=== PATIENT | male | born 1990 | race Caucasian/White ===

== ENCOUNTER 2022-07-10 05:43 | Emergency (ER) | payer OTHER, SELFPAY ==
[2022-07-10] VITALS (11 sets, daily range): BP systolic 111–128; BP diastolic 60–80; PULSE 61–84; RESP 16–18; TEMP 36.7; O2SAT 94–99; BMI 37.5
--- NOTE | 2022-07-10 06:01 | CRLHL7_ITS ---
For Patients: As a result of the Century Cures Act, medical imaging exams and procedure reports are released immediately into your electronic medical record. You may view this report before your referring provider. If you have questions, please contact your health care provider. CT HEAD DATE: 07/10/2022 CLINICAL HISTORY: Patient with fall. TECHNIQUE: Standard CT scanning of the head was performed. COMPARISON: None. FINDINGS: There is left frontal scalp swelling. There is no intracranial hemorrhage. The bundy matter-white matter differentiation is intact. The size of the ventricular system is normal for age. There is no mass effect or midline shift. The calvarium is unremarkable. The orbits are unremarkable. The paranasal sinuses are unremarkable. The mastoid air cells are unremarkable. IMPRESSION: Left frontal scalp swelling without associated skull fracture or intracranial hemorrhage. Please note that all CT scans at this facility use dose modulation, iterative reconstruction, and/or weight-based dosing when appropriate to reduce radiation dose to as low as reasonably achievable. Dictated by: Patricia Vallejo MD @ 07/10/2022 06:59:31 (Electronically Signed)
--- NOTE | 2022-07-10 06:01 | CRLHL7_ITS ---
For Patients: As a result of the Cures Act, medical imaging exams and procedure reports are released immediately into your electronic medical record. You may view this report before your referring provider. If you have questions, please contact your health care provider. CT CERVICAL SPINE DATE: 07/10/2022 HISTORY: Trauma. TECHNIQUE: Helical CT acquisition of the cervical spine was performed. Boyle and sagittal reformations were performed and interpreted. COMPARISON: None. FINDINGS: There is no evidence of acute displaced fracture or dislocation of the cervical spine. There is straightening of the normal cervical lordosis. The vertebral body height is maintained. There are scattered degenerative changes in the cervical spine. The visualized prevertebral soft tissues are unremarkable. The visualized lung apices are unremarkable. IMPRESSION: No acute displaced fracture or dislocation of the cervical spine. Please note that all CT scans at this facility use dose modulation, iterative reconstruction, and/or weight-based dosing when appropriate to reduce radiation dose to as low as reasonably achievable. Dictated by: Patricia Vallejo MD @ 07/10/2022 06:59:54 (Electronically Signed)
--- NOTE | 2022-07-10 06:30 | ED_ITS ---
HPI - General Adult General Date Seen: 07/10/22 Chief complaint: Head Injury/Pain Stated complaint: head lac Time Seen by Provider: 07/10/22 05:50 History of Present Illness HPI narrative: Patient is a Related Data Previous Rx's Medication Instructions Recorded cyclobenzaprine 10 mg tablet 10 mg PO TID PRN muscle spasm #20 07/10/22 tabs Allergies Allergy/AdvReac Type Severity Reaction Status Date / Time No Known Drug Allergies Allergy Unverified 07/10/22 05:50 Review of Systems Narrative: Review of systems is outlined above otherwise noted to be negative. [facility] Medical History (Updated 07/10/22 @ 11:48 by Makenzie Richardson) No significant past medical history Surgical History (Updated 07/10/22 @ 11:48 by Makenzie Richardson) No significant past surgical history Social History Smoking Status: Never smoker Do you use any of these nicotine containing products: None Second hand tobacco smoke exposure: No How often do you have a drink containing alcohol: never How often do you have six or more drinks on one occasion: Never AUDIT-C Alcohol total score: 0 Non-prescribed substance use: denies use Exam Narrative: Exam Narrative: Vitals noted. HEENT: He has a shallow laceration his occiput runs horizontally and is about 1/2 cm in length. This is not full skin thickness. Upper edges are well approximated. Bleeding has been controlled with direct pressure. Conjunctiva clear. Tympanic membranes are pearly white bilaterally. Posterior pharynx is clear without erythema or exudate. No postauricular ecchymosis or hemotympanum. Neck is supple without adenopathy, thyromegaly, carotid bruit. Full range of motion of the cervical spine. Lungs: Clear to auscultation in all mohan. No wheezes, rales, rhonchi. Heart: Regular rate and rhythm without murmur. Abdomen: Soft and nontender. No guarding, rigidity, rebound. Bowel sounds are normal. No palpable masses. Extremities: No cyanosis or edema. Good distal pulses. I did palpate some intermittent leg cramps in both eyes. No calf tenderness or swelling. Skin: No abnormalities noted of the exposed skin. Neurologic: Awake, alert, fully oriented. Neurologic exam is nonfocal. Const: Vital Signs, click to edit/add: Vital Signs - 24 hr 07/10/22 05:51 07/10/22 06:00 07/10/22 06:29 Temperature 98.1 F Pulse Rate 64 Pulse Rate [Right Pulse Oximeter] 65 Respiratory Rate 18 16 Blood Pressure 125/60 Blood Pressure [Le ft Upper Arm] 128/73 Pulse Oximetry 99 99 97 Oxygen Delivery Me thod Room Air 07/10/22 06:32 07/10/22 08:06 07/10/22 08:00 Temperature Pulse Rate 63 Pulse Rate [Right Pulse Oximeter] 61 Respiratory Rate 16 16 Blood Pressure 125/64 Blood Pressure [Le ft Upper Arm] 117/76 Pulse Oximetry 96 96 Oxygen Delivery Me thod 07/10/22 05:47 07/10/22 06:25 07/10/22 06:45 Temperature Pulse Rate Pulse Rate [Right Pulse Oximeter] 61 61 63 Respiratory Rate 16 16 16 Blood Pressure Blood Pressure [Le ft Upper Arm] 128/73 125/60 125/64 Pulse Oximetry 97 97 96 Oxygen Delivery Me thod Room Air Room Air Room Air 07/10/22 07:15 07/10/22 07:45 07/10/22 08:00 Temperature Pulse Rate Pulse Rate [Right Pulse Oximeter] 84 61 64 Respiratory Rate 16 16 16 Blood Pressure Blood Pressure [Le ft Upper Arm] 111/64 125/80 117/76 Pulse Oximetry 94 96 96 Oxygen Delivery Me thod Room Air Room Air Room Air Course Course Hospital Course: Patient was seen and examined. He has a shallow laceration on the occiput that is not currently bleeding. This is well approximated and I applied Dermabond with hemostasis. CT scan of his head and neck are ordered and returned with no abnormal findings. He initially declined need for medication but later began having some muscle cramps in his thighs and was treated with Flexeril 10 mg orally and ibuprofen 800 mg orally. He was able to ambulate out of the depar tment without any difficulty. Vital Signs Vital signs: Initial Vital Signs Pulse Rate 61 07/10/22 05:47 Pulse Rhythm 07/10/22 05:47 Respiratory Rate 16 07/10/22 05:47 Respiratory Effort 07/10/22 05:47 Respiratory Depth Normal 07/10/22 05:47 Respiratory Pattern 07/10/22 05:47 Blood Pressure 128/73 07/10/22 05:47 Blood Pressure Mean 91 07/10/22 05:47 Blood Pressure Position Sitting 07/10/22 05:47 Pulse Oximetry 97 07/10/22 05:47 Oxygen Delivery Method 07/10/22 05:47 Vital Signs Pulse Rate 61 07/10/22 05:47 Respiratory Rate 16 07/10/22 05:47 Blood Pressure 128/73 07/10/22 05:47 Pulse Oximetry 97 07/10/22 05:47 Oxygen Delivery Method 07/10/22 05:47 Temperature 98.1 F 07/10/22 05:51 Pulse Rate 61 07/10/22 08:06 Respiratory Rate 16 07/10/22 08:06 Blood Pressure 117/76 07/10/22 08:06 Pulse Oximetry 96 07/10/22 08:00 Oxygen Delivery Method 07/10/22 08:00 Medical Decision Making MDM Narrative Medical decision making narrative: We discussed that esophageal strictures are generally caused by untreated acid reflux. I have encouraged him to take omeprazole 20 mg every day for at least 6-8 weeks. If he has further stricture symptoms he needs an EGD. Ideally he should have one regardless. Discharge Plan Discharge Clinical Impression: Closed head injury Patient Disposition: Home, Self-Care Condition: Improved Instructions: Head Injury (ED), Skin Adhesive Care (ED) Additional Instructions: Rest, ice, ibuprofen 800 mg 3 times daily. Flexeril 10 mg 3 times daily as needed for muscle spasms. Stay hydrated, stretch. Follow-up in the clinic if symptoms are not improving over the next 2-3 days. Prescriptions: New cyclobenzaprine 10 mg tablet 10 mg PO TID PRN (Reason: muscle spasm) Qty: 20 0RF Follow Up/Referrals: Generic,Amb Provider [Primary Care Provider] - Stand Alone Forms: My[employer] Info Instructions
[2022-07-10] MEDS: CYCLOBENZAPRINE HCL 10 MG TABLET PO (07:23)
--- NOTE | 2022-07-24 21:38 | ED_ITS ---
HPI - General Adult General Chief complaint: Head Injury/Pain Stated complaint: head lac Time Seen by Provider: 07/10/22 05:50 History of Present Illness HPI narrative: Pt is a 32 yo male who comes in after falling on the ice this morning. He hit the back of his head on cement steps. No LOC. He suffered a laceration and has a headache. No neuro deficit. No visual changes. Related Data Previous Rx's Medication Instructions Recorded cyclobenzaprine 10 mg tablet 10 mg PO TID PRN muscle spasm #20 07/10/22 tabs Allergies Allergy/AdvReac Type Severity Reaction Status Date / Time No Known Drug Allergies Allergy Unverified 07/10/22 05:50 [facility] Medical History (Updated 07/10/22 @ 11:48 by Makenzie Richardson) No significant past medical history Surgical History (Updated 07/10/22 @ 11:48 by Makenzie Richardson) No significant past surgical history Social History Smoking Status: Never smoker Do you use any of these nicotine containing products: None Second hand tobacco smoke exposure: No How often do you have a drink containing alcohol: never How often do you have six or more drinks on one occasion: Never AUDIT-C Alcohol total score: 0 Non-prescribed substance use: denies use Course Course Hospital Course: Patient was seen and examined. He has a shallow laceration on the occiput that is not currently bleeding. This is well approximated and I applied Dermabond with hemostasis. CT scan of his head and neck are ordered and returned with no abnormal findings. He initially declined need for medication but later began having some muscle cramps in his thighs and was treated with Flexeril 10 mg orally and ibuprofen 800 mg orally. He was able to ambulate out of the department without any difficulty. Vital Signs Vital signs: Initial Vital Signs Pulse Rate 61 07/10/22 05:47 Pulse Rhythm 07/10/22 05:47 Respiratory Rate 16 07/10/22 05:47 Respiratory Effort 07/10/22 05:47 Respiratory Depth Normal 07/10/22 05:47 Respiratory Pattern 07/10/22 05:47 Blood Pressure 128/73 07/10/22 05:47 Blood Pressure Mean 91 07/10/22 05:47 Blood Pressure Position Sitting 07/10/22 05:47 Pulse Oximetry 97 07/10/22 05:47 Oxygen Delivery Method 07/10/22 05:47 Vital Signs Pulse Rate 61 07/10/22 05:47 Respiratory Rate 16 07/10/22 05:47 Blood Pressure 128/73 07/10/22 05:47 Pulse Oximetry 97 07/10/22 05:47 Oxygen Delivery Method 07/10/22 05:47 Temperature 98.1 F 07/10/22 05:51 Pulse Rate 61 07/10/22 08:06 Respiratory Rate 16 07/10/22 08:06 Blood Pressure 117/76 07/10/22 08:06 Pulse Oximetry 96 07/10/22 08:00 Oxygen Delivery Method 07/10/22 08:00 Discharge Plan Discharge Clinical Impression: Closed head injury Patient Disposition: Home, Self-Care Condition: Improved Instructions: Head Injury (ED), Skin Adhesive Care (ED) Additional Instructions: Rest, ice, ibuprofen 800 mg 3 times daily. Flexeril 10 mg 3 times daily as needed for muscle spasms. Stay hydrated, stretch. Follow-up in the clinic if symptoms are not improving over the next 2-3 days. Prescriptions: New cyclobenzaprine 10 mg tablet 10 mg PO TID PRN (Reason: muscle spasm) Qty: 20 0RF Follow Up/Referrals: Generic,Amb Provider [Primary Care Provider] - Stand Alone Forms: MyHealth Info Instructions
== END 2022-07-10 08:07 | disposition home or self-care (01) ==
PROVIDERS: Emergency Provider Family Medicine
DX: S01.01XA Laceration without foreign body of scalp, initial encounter (principal); W00.0XXA Fall on same level due to ice and snow, initial encounter; R51.9 Headache, unspecified
CPT/HCPCS: 12001; 70450; 72125; 94761; 99283; 99284; A9270

== ENCOUNTER 2023-01-02 08:23 | Outpatient (CLI) | payer OTHER, SELFPAY | END 2023-01-02 08:24 | disposition home or self-care (01) | PROVIDERS: PCP Family Medicine; Visit Provider Family Medicine | DX: Z00.00 Encounter for general adult medical examination without abnormal findings (principal); R53.83 Other fatigue; Z13.6 Encounter for screening for cardiovascular disorders | CPT/HCPCS: 80053; 80061; 84270; 84402; 84403; 84443 ==

== ENCOUNTER 2023-02-14 09:22 | Outpatient (CLI) | payer OTHER, SELFPAY | END 2023-02-14 09:23 | disposition home or self-care (01) | LOC: NFLDREF 02-19 10:58 | PROVIDERS: PCP Family Medicine; Referring Provider Family Medicine; Visit Provider Family Medicine | DX: R79.89 Other specified abnormal findings of blood chemistry (principal) | CPT/HCPCS: 83001; 83002; 84403 ==

== ENCOUNTER 2023-06-09 18:59 | Outpatient (CLI) | payer OTHER, SELFPAY | END 2023-06-09 19:00 | disposition home or self-care (01) | LOC: NFLDUCREF 19:00 | PROVIDERS: PCP Family Medicine; Visit Provider Physician Assistant | DX: R79.89 Other specified abnormal findings of blood chemistry (principal); E86.0 Dehydration; R19.7 Diarrhea, unspecified; R11.0 Nausea; R51.9 Headache, unspecified | CPT/HCPCS: 87045; 87046; 87427 ==

== ENCOUNTER 2023-12-20 23:32 | Emergency (ER) | payer OTHER, SELFPAY ==
[2023-12-20 23:35] VITALS: BP 117/56; PULSE 104; RESP 14; TEMP 38.7; O2SAT 92; BMI 39.2
[2023-12-20] MEDS: 0.9 % SODIUM CHLORIDE 1000 ml 1,000 ML IV (23:45)
--- NOTE | 2023-12-20 23:59 | ED.GENADULT ---
HPI - General Adult General Chief complaint: Headache/Migraine Stated complaint: migraine Time Seen by Provider: 12/20/23 23:59 History of Present Illness HPI narrative: Pt c/o fever, headache, nausea, chills, back pain, sore throat, and tingling in bilateral arms /fingers that started earlier today. Pt went home from work early d/t symptoms. Hx ocular migraines. Hx fall in August where pt fell down stairs onto back. Zofran 4 mg at 2100, Tylenol 1000 mg at 2100 33-year-old man presenting to the emergency department with complaint of severe headache as well as fever nausea. Seem to have started perhaps in the low back and escalated very quickly. Does have a history of migraines particularly ocular. Has had some sore throat. Also began to experience tingling in both arms and fingers. 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 No rashes noted. There was a fall a few months ago onto his back. Did try treating a couple of hours before arrival with acetaminophen and also Zofran. Was particularly alarming is the rapid escalation or development of this headache which is atypical. More brought in distribution as well. Accompanied by spouse. Related Data Home Medications ?Medication ?Instructions ?Recorded ?Confirmed cholecalciferol (vitamin D3) PO .QD 01/02/23 12/22/23 cetirizine .Route 12/20/23 12/22/23 multivitamin 1 tab PO QAM 12/22/23 12/22/23 omega 5-ryy-uum-fish oil 100 cap PO 12/22/23 12/22/23 mg-160 mg-1,000 mg capsule (Fish Oil) Previous Rx's ?Medication ?Instructions ?Recorded ondansetron 4 mg disintegrating 4 mg PO Q8H PRN nausea and 06/09/23 tablet vomiting #10 tabs azithromycin 500 mg tablet See Rx Instructions PO .COMPLEX #3 12/22/23 tabs Allergies Allergy/AdvReac Type Severity Reaction Status Date / Time No Known Drug Allergies Allergy Verified 12/22/23 09:59 Review of Systems Status of ROS: Reports: 6 or more systems reviewed and unremarkable except as noted in History and below [facility] Medical History Foot pain ?M79.673 - Pain in unspecified foot (ICD-10) No significant past medical history Surgical History No significant past surgical history Social History What is your current living situation?: I presently have a place to live Problems where you live: no known problems In the past 12 months, utilities in danger of being shut off: no In past 12 months, lack of transportation kept you from medical appts, meetings, work, or getting things needed for daily living: no In the past 12 mos, have been you worried that your food would run out before you had money to buy more?: never true In the past 12 mos, the food you bought just didn't last and you didn't have money to buy more?: never true Smoking Status: Never smoker Do you use any of these nicotine containing products: None Second hand tobacco smoke exposure: No How often do you have a drink containing alcohol: never How often do you have six or more drinks on one occasion: Never AUDIT-C Alcohol total score: 0 Non-prescribed substance use: denies use How often does anyone, including family, friends and others, physically hurt you: never How often does anyone, including family, friends and others, insult or talk down to you: rarely How often does anyone, including family, friends and others, threaten you with harm: never How often does anyone, including family, friends and others, scream or curse at you: rarely Little interest or pleasure in doing things: several days Feeling down, depressed, or hopeless: not at all Exam Narrative: Exam Narrative: Pleasant. Large stature. Clearly very uncomfortable. Shielding eyes from the light. Speaking fluidly. Cranial nerves 2-12 intact. Pupils are equal and brisk. Moving all extremities without difficulty with good strength. Skin is rather warm not inconsistent with measured fever on arrival but no rash on exposed areas noted. Extremities are without edema and well-perfused. Neck is supple. No swellings. Oropharynx maybe minimal erythema but not markedly so. Heart in elevated rate with regular rhythm. Lungs appear to be clear. Broadly a little sore in paracervical and paraspinal musculature Const: Vital Signs, click to edit/add: Vital Signs - 24 hr 12/20/23 23:35 Temperature 101.7 F H Pulse Rate [Pulse Oximeter] 104 H Respiratory Rate 14 Blood Pressure [Ri ght Upper Arm] 117/56 L Pulse Oximetry 92 Oxygen Delivery Me thod Room Air Documenting provider has reviewed patient's vital signs: yes Course Vital Signs Vital signs: Initial Vital Signs Temperature 101.7 F H 12/20/23 23:35 Temperature Source Temporal Artery Scan 12/20/23 23:35 Pulse Rate 104 H 12/20/23 23:35 Respiratory Rate 14 12/20/23 23:35 Blood Pressure 117/56 L 12/20/23 23:35 Blood Pressure Mean 76 12/20/23 23:35 Blood Pressure Position Supine 12/20/23 23:35 Pulse Oximetry 92 12/20/23 23:35 Oxygen Delivery Method Room Air 12/20/23 23:35 Vital Signs Temperature 101.7 F H 12/20/23 23:35 Pulse Rate 104 H 12/20/23 23:35 Respiratory Rate 14 12/20/23 23:35 Blood Pressure 117/56 L 12/20/23 23:35 Pulse Oximetry 92 12/20/23 23:35 Oxygen Delivery Method Room Air 12/20/23 23:35 Temperature 101.8 F H 12/21/23 02:48 Pulse Rate 91 12/21/23 04:05 Respiratory Rate 18 12/21/23 04:05 Blood Pressure 120/73 12/21/23 04:05 Pulse Oximetry 94 12/21/23 04:25 Oxygen Delivery Method Room Air 12/21/23 01:32 Medications Administered Medications: Discontinued Medications Generic Name Dose Route Start Last Admin Trade Name Freq PRN Reason Stop Dose Admin Acetaminophen 1,000 mg 12/21/23 03:05 12/21/23 03:15 Acetaminophen 500 Mg Tablet PO 12/21/23 03:06 1,000 mg ONCE ONE Administration Diphenhydramine HCl 25 mg 12/21/23 00:08 12/21/23 00:16 Diphenhydramine 50 Mg/Ml Inj IVP 12/21/23 00:09 25 mg ONCE ONE Administration Hydromorphone HCl 0.5 mg 12/21/23 02:38 12/21/23 03:02 Hydromorphone 0.5 Mg/0.5 Ml Inj IVP 12/21/23 02:39 0.5 mg ONCE ONE Administration Sodium Chloride 1,000 mls @ 1,000 mls/hr 12/21/23 00:08 12/21/23 00:52 0.9 % Sodium Chloride 1000 Ml IV 12/21/23 01:07 Infused .Q1H ONE Infusion Sodium Chloride 1,000 mls @ 1,000 mls/hr 12/21/23 00:51 12/21/23 02:00 0.9 % Sodium Chloride 1000 Ml IV 12/21/23 01:50 Infused .Q1H ONE Infusion Ketamine HCl 20 mg/ Sodium 100.2 mls @ 200.4 mls/hr 12/21/23 01:41 12/21/23 03:26 Chloride IVPB 12/21/23 01:42 Infused ONCE ONE Infusion Ketorolac Tromethamine 30 mg 12/21/23 00:08 12/21/23 00:15 Ketorolac 30 Mg/Ml Inj IVP 12/21/23 00:09 30 mg ONCE ONE Administration Lidocaine HCl 5 ml 12/21/23 02:53 12/21/23 03:25 Lidocaine Hcl 2 % Multidose 20 Ml Vial INJECTION 12/21/23 02:54 5 ml ONCE ONE Administration Ondansetron HCl 4 mg 12/21/23 00:08 12/21/23 00:15 Ondansetron 2 Mg/Ml Inj IVP 12/21/23 00:09 4 mg ONCE ONE Administration Medical Decision Making MDM Narrative Medical decision making narrative: Initially would presume activation of headache and myalgias with primary viral process. I would screen for typical viral etiologies. Meningitis certainly is in differential and would do lab work in that regard. Would like to offer relief of his headache though. Given intensity of symptoms along with this fever would collect blood cultures in the process. Did have sore throat perhaps a be reasonable to check for strep. With symmetry of symptoms in frankly presence of pain I think this is less likely to represent a thromboembolic stroke event. IV initiated. Received normal saline ultimately 2 L. Antiemetic, ketorolac. Labs are reassuring. I think fever is more customer retention representative of infectious etiology contributing to this headache possibly even a viral meningitis. I think head bleed is less likely but if we intend to do a spinal tap, screening head CT would be warranted as well. Also with concerns has expressed we did do a head CT which was reviewed by me to be unremarkable. Radiology concurs. Still though with good deal of discomfort. Second round with ketamine and finally then hydromorphone and then acetaminophen. Still uncomfortable but improved. Feels he can manage at home. Spinal tap is deferred pending improvement. Ambulatory from the ER. See patient discharge plan for further discussion Lab Data Lab results reviewed: Yes I reviewed the patient's lab results Labs: Lab Results 12/20/23 12/21/23 12/21/23 Range/Units 23:55 00:51 02:20 WBC 8.39 (4.50-11.00) K/uL RBC 4.58 (4.30-5.90) m/uL Hgb 14.2 (13.5-17.5) gm/dL Hct 40.3 (37.0-53.0) % MCV 88 (80-100) fL MCH 31 (26-34) pg MCHC 35 (32-36) gm/dL RDW Coeff of Tunde 12.1 (11.5-15.5) % Plt Count 149 (140-440) K/uL Neut % (Auto) 81.2 H (42.0-72.0) % Lymph % (Auto) 6.2 L (20-44) % Evans % (Auto) 11.0 (0.0-11.0) % Eos % (Auto) 0.1 (0.0-7.0) % Baso % (Auto) 0.1 (0.0-3.0) % Neut # (Auto) 6.80 (1.7-7.0) K/uL Lymph # (Auto) 0.50 L (0.90-2.90) K/uL Evans # (Auto) 0.90 (0.00-0.90) K/UL Eos # (Auto) 0.01 (0.00-0.50) K/uL Baso # (Auto) 0.01 (0.00-0.30) K/uL Abs Immat Gran (auto) 0.12 (0.00-0.30) K/uL Imm/Tot Granulo (auto) 1.4 % Sodium 137 (135-149) mmol/L Potassium 3.9 (3.6-5.1) mmol/L Chloride 105 (96-114) mmol/L Carbon Dioxide 25 (20-32) mmol/L Anion Gap 7 (7-15) mEq/L BUN 14 (5-24) mg/dL Creatinine 1.0 (0.5-1.5) mg/dL Estimated Creat Clear 123.30 Estimated GFR 103 ml/min Glucose 109 (60-115) mg/dL Lactate (0.5-1.9) mmol/L Calcium 8.5 (8.4-10.6) mg/dL Total Bilirubin 0.6 (0.1-1.5) mg/dL Direct Bilirubin 0.2 (0.0-0.5) mg/dL AST 27 (12-35) U/L ALT 28 (4-50) U/L Alkaline Phosphatase 57 (40-150) U/L C-Reactive Protein 1.8 H (0.5-1.0) mg/dL Total Protein 6.2 (6.0-8.3) g/dL Albumin 3.7 (3.3-5.0) g/dL SARS-CoV-2 (PCR) Negative SARS-CoV-2 (Negative) Influenza Type A (PCR) Negative PCR FLU A (Negative) Influenza Type B (PCR) Negative PCR FLU B (Negative) RSV (PCR) Negative PCR RSV (Negative) Group A Strep DNA NOT DETECTED (Not Detectd) 12/21/23 Range/Units 03:20 WBC (4.50-11.00) K/uL RBC (4.30-5.90) m/uL Hgb (13.5-17.5) gm/dL Hct (37.0-53.0) % MCV (80-100) fL MCH (26-34) pg MCHC (32-36) gm/dL RDW Coeff of Tunde (11.5-15.5) % Plt Count (140-440) K/uL Neut % (Auto) (42.0-72.0) % Lymph % (Auto) (20-44) % Evans % (Auto) (0.0-11.0) % Eos % (Auto) (0.0-7.0) % Baso % (Auto) (0.0-3.0) % Neut # (Auto) (1.7-7.0) K/uL Lymph # (Auto) (0.90-2.90) K/uL Evans # (Auto) (0.00-0.90) K/UL Eos # (Auto) (0.00-0.50) K/uL Baso # (Auto) (0.00-0.30) K/uL Abs Immat Gran (auto) (0.00-0.30) K/uL Imm/Tot Granulo (auto) % Sodium (135-149) mmol/L Potassium (3.6-5.1) mmol/L Chloride (96-114) mmol/L Carbon Dioxide (20-32) mmol/L Anion Gap (7-15) mEq/L BUN (5-24) mg/dL Creatinine (0.5-1.5) mg/dL Estimated Creat Clear Estimated GFR ml/min Glucose (60-115) mg/dL Lactate 1.1 (0.5-1.9) mmol/L Calcium (8.4-10.6) mg/dL Total Bilirubin (0.1-1.5) mg/dL Direct Bilirubin (0.0-0.5) mg/dL AST (12-35) U/L ALT (4-50) U/L Alkaline Phosphatase (40-150) U/L C-Reactive Protein (0.5-1.0) mg/dL Total Protein (6.0-8.3) g/dL Albumin (3.3-5.0) g/dL SARS-CoV-2 (PCR) (Negative) Influenza Type A (PCR) (Negative) Influenza Type B (PCR) (Negative) RSV (PCR) (Negative) Group A Strep DNA (Not Detectd) Discharge Plan Discharge Clinical Impression: Fever, Headache, Myalgia Patient Disposition: Home w/ Parent or Adult Condition: Improved Additional Instructions: Rest. Hydrate. Ice packs to your neck? Blood cultures are pending. Be seen for marked increase in headache particularly associated with escalating fever, repeated vomiting, discoordination. Prescriptions: No Action cholecalciferol (vitamin D3) PO .QD ondansetron 4 mg tablet,disintegrating 4 mg PO Q8H PRN (Reason: nausea and vomiting) Qty: 10 0RF Fish Oil 100-160-1,000 mg capsule PO multivitamin Tablet 1 tab PO QAM azithromycin 500 mg tablet See Rx Instructions PO .COMPLEX Qty: 3 0RF Rx Instructions: For 500 mg dose pack: take 500 mg once daily for 3 days PO cetirizine [Zyrtec] .Route Follow Up/Referrals: Eb Jose MD [Primary Care Provider] - Stand Alone Forms: [employer] Info Instructions
[2023-12-21] VITALS (21 sets, daily range): BP systolic 92–120; BP diastolic 35–73; PULSE 83–99; RESP 14–18; TEMP 38.5–38.8; O2SAT 91–97
[2023-12-21] MEDS: KETOROLAC 30 MG/ML inj IVP (00:15)
[2023-12-21] MEDS: ONDANSETRON 2 MG/ML inj 4 MG IVP (00:15)
[2023-12-21] MEDS: diphenhydrAMINE 50 MG/ML inj 25 MG IVP (00:16)
--- OUTSIDE RECORDS SUMMARY | 2023-12-21 00:17 | XMS_ITS | Clinical Summary ---
Author Organization [facility] Address [place], [place] [address] Care Team Providers Care Business Agent Name Role Phone Pcp, No Primary Care Provider Unavailabl e Allergies No known active allergies Medications Medication Sig Dispensed Refills Start Date End Date Status CLARITIN-D 12 HOUR 5 MG-120 MG TAB take 1 tablet by oral route every 12 hours 0 01/21/2007 Active MULTIVITAMIN TAB take 1 tablet by oral route once daily with food 0 03/24/2007 Active omega-3 fatty acids-vitamin E (FISH OIL) 1,000 mg cap Take by mouth once daily. 0 09/13/2013 Active Active Problems Problem Noted Date Diagnosed Date Tear of PCL (posterior cruciate ligament) of kne e 09/21/2013 Immunizations Name Administration Dates Next Due AMB Influenza, IIV3 (Age >=3 years)(Flu Clinic Only) 05/25/2010,06/03/2008 DTP 11/20/1992, 2,1991,07/15 DTaP 10/22/1996 HIB HbOC (HibTITER) 08/15/1992, 2,1991,07/15 Hepatitis B (Peds) 03/15/1999,10/13/1998, 999 Influenza, IIV3 (Age >=3 years) 03/14/2013 MMR 09/26/2003,08/15/1992 Meningococcal Vaccine (Menactra) 11/21/2009 Oral Polio Vaccine 10/22/1996, 3,1991,07/15 Td, Preservative Free (age >= 7 Years) 4 Varicella Vaccine 11/21/2009,10/22/1996 Family History Medical History Relation Name Comments Heart Disease Father exercise induc ed Vtach Psychiatric illness Mother mild dep ression Thyroid Disease Mother Good Health Sister Relation Name Status Comments Father Mother Sister Social History Tobacco Use Types Packs/Day Years Used Date Smoking Tobacco: Never Smokeless Tobacco: Never Tobacco Cessation:Counseling Given: Yes Alcohol Use Standard Drinks/Week Comments No 0 (1 standard drink = 0.6 oz pur e alcohol) Sex and Gender Information Value Date Recorded Sex Assigned at Not on file Gender Identity Not on file Sexual Orientation Not on file Obstetrics History Last Filed Vital Signs Vital Sign Reading Time Taken Comments Blood Pressure 126/70 06/20/2014 10:25 AM STATISTICS TEACHER Pulse 59 06/20/2014 10:25 AM STATISTICS TEACHER Temperature 36.9 ??C (98.4 ??F) 09/13/2013 9:55 AM CD T Respiratory Rate - - Oxygen Saturation 98% 09/13/2013 9:55 AM CDT Inhaled Oxygen Concentration - - Weight 122 kg (269 lb) 06/20/2014 10:25 AM STATISTICS TEACHER Height 193 cm (6' 3.98) 06/20/2014 10:25 AM STATISTICS TEACHER Body Mass Index 32.76 06/20/2014 10:25 AM STATISTICS TEACHER Plan of Treatment Health Maintenance Due Date Last Done Comments Tdap 2002 Depression screening for age 12+ 2003 HIV for age 15-65 2006 BMI (ht and wt on same day) for age 18+ 2009 Hepatitis C screening for ag e 18-79 2009 Tetanus booster 09/25/2013 09/26/2003 COVID-19 vaccine series ( season) 2023 Influenza for age 9-49 02/29/2024 3, 05/25/2010, 06/03/2008 Pneumococcal series for age 6-64 Aged Out No longer eligible b ased on patient's age to complete this topic Care Teams Business Agent Relationship Specialty Start Date End Date Pcp, No . PCP - General 03/10/12
[2023-12-21 00:25] LABS: Strep A DNA Probe* NOT DETECTED (Not Detectd)
[2023-12-21 00:38] LABS: PCR FLU A Negative PCR FLU A (Negative); PCR FLU B Negative PCR FLU B (Negative); PCR RSV Negative PCR RSV (Negative); SARS PCR* Negative SARS-CoV-2 (Negative)
[2023-12-21] MEDS: 0.9 % SODIUM CHLORIDE 1000 ml 1,000 ML IV (00:53)
[2023-12-21 01:02] LABS: Basophils Absolute Auto 0.01 K/uL (0.00-0.30); Basophils Percent Auto 0.1 % (0.0-3.0); Eosinophils Absolute Auto 0.01 K/uL (0.00-0.50); Eosinophils Percent Auto 0.1 % (0.0-7.0); Hematocrit 40.3 % (37.0-53.0); Hemoglobin* 14.2 gm/dL (13.5-17.5); Immature Granulocytes Abs Auto 0.12 K/uL (0.00-0.30); Immature Granulocytes Pct Auto 1.4 %; Lymphocytes Percent Auto 6.2 % (20-44); Mean Corpuscular HGB Conc 35 gm/dL (32-36); Mean Corpuscular Hemoglobin 31 pg (26-34); Mean Corpuscular Volume 88 fL (80-100); Neutrophils Percent Auto 81.2 % (42.0-72.0); Platelet Count* 149 K/uL (140-440); RDW Coefficient of Variation % 12.1 % (11.5-15.5); Red Blood Count 4.58 m/uL (4.30-5.90); White Blood Count* 8.39 K/uL (4.50-11.00)
[2023-12-21 01:04] LABS: Slide Review Reflex No
[2023-12-21 01:21] LABS: C Reactive Protein* 1.8 mg/dL (0.5-1.0)
[2023-12-21] MEDS: KETAMINE 50 MG/0.5 ML 20 MG in 0.9 % SODIUM CHLORIDE 100 ml 100 ML 200.4 MG IVPB (01:53)
--- NOTE | 2023-12-21 02:38 | CRLHL7_ITS ---
For Patients: As a result of the Century Cures Act, medical imaging exams and procedure reports are released immediately into your electronic medical record. You may view this report before your referring provider. If you have questions, please contact your health care provider. Indication: Severe headache Technique: Noncontrast CT through the head with multiplanar reformats Comparison: None Findings: Brain: No acute hemorrhage. No acute infarct. No significant mass effect or midline shift. No gross evidence of a mass lesion or cerebral edema. Small retro cerebellar cyst, benign and incidental. Ventricles: No acute abnormality appreciated. Orbits, sinuses, mastoids: No acute abnormality appreciated. Calvarium and soft tissues: No acute abnormality appreciated. Impression: No acute abnormality appreciated. Please note that all CT scans at this facility use dose modulation, iterative reconstruction, and/or weight-based dosing when appropriate to reduce radiation dose to as low as reasonably achievable. Dictated by Derrell Chavez MD @ 12/21/2023 3:43:21 AM (Electronically Signed)
[2023-12-21] MEDS: HYDROmorphone 0.5 mg/0.5 ml inj IVP (03:02)
[2023-12-21] MEDS: ACETAMINOPHEN 500 MG TABLET 1000 MG PO (03:15)
[2023-12-21] MEDS: lidocaine HCL 2 % MULTIDOSE 20 ML VIAL 5 ML INJECTION (03:25)
[2023-12-21 03:30] LABS: Lactate* 1.1 mmol/L (0.5-1.9)
[2023-12-21 03:46] LABS: Chloride* 105 mmol/L (96-114)
[2023-12-21 03:47] LABS: Albumin* 3.7 g/dL (3.3-5.0); Potassium* 3.9 mmol/L (3.6-5.1); Sodium* 137 mmol/L (135-149)
[2023-12-21 03:50] LABS: Alanine Aminotransferase* 28 U/L (4-50); Alkaline Phosphatase* 57 U/L (40-150); Anion Gap 7 mEq/L (7-15); Aspartate Amino Transferase* 27 U/L (12-35); Bilirubin Direct* 0.2 mg/dL (0.0-0.5); Bilirubin Total* 0.6 mg/dL (0.1-1.5); Blood Urea Nitrogen* 14 mg/dL (5-24); Calcium* 8.5 mg/dL (8.4-10.6); Carbon Dioxide* 25 mmol/L (20-32); Estimated Glomerular Filt Rate 103 ml/min; Glucose* 109 mg/dL (60-115); Total Protein* 6.2 g/dL (6.0-8.3)
== END 2023-12-21 04:30 | disposition home or self-care (01) ==
PROVIDERS: Emergency Provider Family Medicine; PCP Family Medicine
DX: R51.9 Headache, unspecified (principal); R50.9 Fever, unspecified
CPT/HCPCS: 36415; 70450; 80048; 80076; 83605; 85025; 86140; 87040; 87631; 87651; 94761; 96365; 96375; 99284; A9270; J1170; J1200; J1885; J2405; J3490; J7030

== ENCOUNTER 2024-02-10 07:25 | Outpatient (CLI) | payer OTHER, SELFPAY ==
--- OUTSIDE RECORDS SUMMARY | 2024-02-13 08:03 | XMS_ITS | Clinical Summary ---
Author Organization [facility] Address [place], [place] [address] Care Team Providers Care Subsurface Augmentee Operator Name Role Phone Pcp, No Primary Care [...] Comments Blood Pressure 126/70 06/20/2014 10:25 AM DATA ENTRY EMAIL PROCESSOR Pulse 59 06/20/2014 10:25 AM DATA ENTRY EMAIL PROCESSOR Temperature 36.9 ??C (98.4 ??F) 09/13/2013 9:55 AM CD T Respiratory Rate - - Oxygen Saturation 98% 09/13/2013 9:55 AM CDT Inhaled Oxygen Concentration - - Weight 122 kg (269 lb) 06/20/2014 10:25 AM DATA ENTRY EMAIL PROCESSOR Height 193 cm (6' 3.98) 06/20/2014 10:25 AM DATA ENTRY EMAIL PROCESSOR Body Mass Index 32.76 06/20/2014 10:25 AM DATA ENTRY EMAIL PROCESSOR Plan of Treatment Health Maintenance Due Date [...] age to complete this topic Care Teams Subsurface Augmentee Operator Relationship Specialty Start Date End Date Pcp, No . PCP - General 03/10/12
== END 2024-02-10 07:26 | disposition home or self-care (01) ==
LOC: NFLDREF 02-13 08:01
PROVIDERS: PCP Family Medicine; Referring Provider Family Medicine; Visit Provider Family Medicine
DX: E78.5 Hyperlipidemia, unspecified (principal); Z13.228 Encounter for screening for other metabolic disorders; Z13.29 Encounter for screening for other suspected endocrine disorder; R79.89 Other specified abnormal findings of blood chemistry
CPT/HCPCS: 80053; 80061; 84439; 84443; 84480

== ENCOUNTER 2024-02-26 08:32 | Outpatient (CLI) | payer OTHER, SELFPAY ==
--- OUTSIDE RECORDS SUMMARY | 2024-02-26 08:39 | XMS_ITS | Clinical Summary ---
Author Organization [facility] Address [place], [place] [address] Care Team Providers Care Chief I Dispatcher Name Role Phone Pcp, No Primary Care [...] Comments Blood Pressure 126/70 06/20/2014 10:25 AM HOT CAR OPERATOR Pulse 59 06/20/2014 10:25 AM HOT CAR OPERATOR Temperature 36.9 ??C (98.4 ??F) 09/13/2013 9:55 AM CD T Respiratory Rate - - Oxygen Saturation 98% 09/13/2013 9:55 AM CDT Inhaled Oxygen Concentration - - Weight 122 kg (269 lb) 06/20/2014 10:25 AM HOT CAR OPERATOR Height 193 cm (6' 3.98) 06/20/2014 10:25 AM HOT CAR OPERATOR Body Mass Index 32.76 06/20/2014 10:25 AM HOT CAR OPERATOR Plan of Treatment Health Maintenance Due Date [...] age to complete this topic Care Teams Chief I Dispatcher Relationship Specialty Start Date End Date Pcp, No . PCP - General 03/10/12
== END 2024-02-26 08:33 | disposition home or self-care (01) ==
LOC: NFLDREF 08:33
PROVIDERS: PCP Family Medicine; Visit Provider Family Medicine
DX: Z00.00 Encounter for general adult medical examination without abnormal findings (principal); R79.89 Other specified abnormal findings of blood chemistry
CPT/HCPCS: 84270; 84402; 84403

== ENCOUNTER 2024-04-26 19:38 | Outpatient (CLI) | payer OTHER, SELFPAY ==
--- OUTSIDE RECORDS SUMMARY | 2024-04-26 19:41 | XMS_ITS | Clinical Summary ---
Author Organization [facility] Address [place], [place] [address] Care Team Providers Care Iron Piler Name Role Phone Pcp, No Primary Care [...] Comments Blood Pressure 126/70 06/20/2014 10:25 AM CARDIOVASCULAR TECHNOLOGIST Pulse 59 06/20/2014 10:25 AM CARDIOVASCULAR TECHNOLOGIST Temperature 36.9 ??C (98.4 ??F) 09/13/2013 9:55 AM CD T Respiratory Rate - - Oxygen Saturation 98% 09/13/2013 9:55 AM CDT Inhaled Oxygen Concentration - - Weight 122 kg (269 lb) 06/20/2014 10:25 AM CARDIOVASCULAR TECHNOLOGIST Height 193 cm (6' 3.98) 06/20/2014 10:25 AM CARDIOVASCULAR TECHNOLOGIST Body Mass Index 32.76 06/20/2014 10:25 AM CARDIOVASCULAR TECHNOLOGIST Plan of Treatment Health Maintenance Due Date Last Done Comments Tdap 2002 Depression screening for age 12+ 2003 HIV for age 15-65 2006 BMI (ht and wt on same day) for age 18+ 2009 Hepatitis C screening for ag e 18-79 2009 Tetanus booster 09/25/2013 09/26/2003 COVID-19 vaccine series ( season) 2024 Influenza for age 9-49 02/29/2024 3, 05/25/2010, 06/03/2008 Pneumococcal series for age 6-64 Aged Out No longer eligible b ased on patient's age to complete this topic Care Teams Iron Piler Relationship Specialty Start Date End Date Pcp, No . PCP - General 03/10/12
== END 2024-04-26 19:39 | disposition home or self-care (01) ==
LOC: SLEEP 19:39
PROVIDERS: PCP Family Medicine; Visit Provider Family Medicine
DX: G47.33 Obstructive sleep apnea (adult) (pediatric) (principal)
CPT/HCPCS: 95806

== ENCOUNTER 2024-05-12 11:30 | Outpatient (CLI) | payer OTHER, SELFPAY ==
--- OUTSIDE RECORDS SUMMARY | 2024-05-12 11:31 | XMS_ITS | Clinical Summary ---
Author Organization [facility] Address [place], [place] [address] Care Team Providers Care Calculation Reviewer Name Role Phone Pcp, No Primary Care [...] Comments Blood Pressure 126/70 06/20/2014 10:25 AM MATERIAL DISTRIBUTOR Pulse 59 06/20/2014 10:25 AM MATERIAL DISTRIBUTOR Temperature 36.9 ??C (98.4 ??F) 09/13/2013 9:55 AM CD T Respiratory Rate - - Oxygen Saturation 98% 09/13/2013 9:55 AM CDT Inhaled Oxygen Concentration - - Weight 122 kg (269 lb) 06/20/2014 10:25 AM MATERIAL DISTRIBUTOR Height 193 cm (6' 3.98) 06/20/2014 10:25 AM MATERIAL DISTRIBUTOR Body Mass Index 32.76 06/20/2014 10:25 AM MATERIAL DISTRIBUTOR Plan of Treatment Health Maintenance Due Date [...] age to complete this topic Care Teams Calculation Reviewer Relationship Specialty Start Date End Date Pcp, No . PCP - General 03/10/12
--- NOTE | 2024-05-26 08:41 | W.PM.SLEEP ---
Sleep Study Details Details Interpreting Provider: Mariela Date of Sleep Study: 05/12/24 Sleep Study Details: STUDY TYPE:? Home unattended ? BMI:? 38.1 ORDERING PROVIDER: Damon INDICATION:? Concern about sleep apnea ? SLEEP SUMMARY:? 548 minutes monitored RESPIRATORY SUMMARY:? AHI 12.6 Low oxygen 83 9.1% of study oxygen less than 90% Snoring 85% PERIODIC LIMB MOVEMENTS OF SLEEP: Not recorded CARDIAC:? Range 43-98, mean 61.8 IMPRESSION:? Mild obstructive sleep apnea with significant oxygen desaturations. RECOMMENDATION: Weight loss is recommended. Treatment options include CPAP dental appliance and/or airway expansion surgery.
== END 2024-05-12 11:31 | disposition home or self-care (01) ==
LOC: SLEEP 11:30
PROVIDERS: PCP Family Medicine; Visit Provider Family Medicine
DX: G47.33 Obstructive sleep apnea (adult) (pediatric) (principal)
CPT/HCPCS: 95806

== ENCOUNTER 2025-04-20 13:28 | Outpatient (CLI) | payer OTHER, SELFPAY | END 2025-04-20 13:29 | disposition home or self-care (01) | PROVIDERS: PCP Family Medicine; Visit Provider Family Medicine | DX: R53.83 Other fatigue (principal); Z00.00 Encounter for general adult medical examination without abnormal findings; Z11.59 Encounter for screening for other viral diseases | CPT/HCPCS: 80053; 80061; 82306; 84439; 84443; 86803 ==

== ENCOUNTER 2025-05-02 12:00 | Outpatient (CLI) | payer OTHER, SELFPAY | END 2025-05-02 12:01 | disposition home or self-care (01) | LOC: RAD 12:02 | PROVIDERS: PCP Family Medicine; Visit Provider Family Medicine | DX: R79.89 Other specified abnormal findings of blood chemistry (principal) | CPT/HCPCS: 93306 ==